=== PATIENT | female | born 1965 | race Caucasian/White ===

== ENCOUNTER 2018-08-06 01:01 | Observation (INO) ==
[2018-08-06] MEDS ORDERED: Naloxone 0.4 MG/ML INJ IVP PRN ×2 (03:05→10:28)
[2018-08-06] MEDS ORDERED: Ondansetron 4 MG/2 ML VIAL IVP PRN ×2 (03:05→10:28)
[2018-08-06] MEDS ORDERED: OXYCODONE Oral CONC 10 MG/0.5 ML ORAL.SYG SL PRN ×3 (03:05→10:28)
[2018-08-06] MEDS ORDERED: Ketorolac 30 MG/ML VIAL IVP PRN (03:05)
[2018-08-06] MEDS ORDERED: 0.9 % Sodium Chloride 1,000 ML IVC SCH ×2 (03:15→09:55)
[2018-08-06 03:38] LABS: Bilirubin,Urine Negative (Negative); Blood,Urine Large (Negative); Clarity,Urine Turbid (Clear); Glucose,Urine (UA) Normal (Normal); Ketones,Urine 40 mg/dL (Negative); Leukocyte Esterase,Urine Moderate (Negative); Nitrite,Urine Positive (Negative); PH,Urine 5.5 pH Units (5.0-8.0); Protein,Urine 30 mg/dL (Neg-Trace); Urobilinogen,Urine Normal (Normal)
[2018-08-06 03:40] LABS: Hyaline Casts,Urine None Seen per lpf (None-Few); RBC,Urine TNTC per hpf (0-3); Squamous Epithelial Cell,Urine Many per lpf (None-Few); WBC,Urine 50-100 per hpf (0-3)
--- NOTE | 2018-08-06 03:41 | Internal Med History&Physical ---
<Dev Melgar T - Last Filed: 08/06/18 04:04> Date of Encounter: 08/06/18 Time of Encounter: 03:39 Internal Medicine - H&P: HPI Chief complaint: Nephrolitiasis Admitted From: Emergency Dept History of present illness: Ms. Antony is a 53 year old female admitted for b/l nephrolitiasis, b/l hydronephrosis, and 3mm calculus in left distal ureter seen on abdominal CT. Patien thas history of HTN, hyperlipidemia, DM, and recurrent nephrolithiasis. She starting having R flank tenderness, left inguinal tenderness, N/V, chills, blood in urine, and feeling febrile two days ago. Tenderness rated 7/10, nonradiating, constant, exacerbated by movement. Patient tried ASA which did not alleviate pain. She presented to [facility] ED last night (08/05) where urinalysis showed possible UTI (positive nitrites) and blood. CT abdomen/plevis showed b/l hydronephrosis, b/l nonobstructing renal calculi, and 3mm calculus in left distal ureter. Urology at [facility] was consulted and they agreed to see her tomorrow for possible stone removal. Past Med Surg Social Fam HX - Past Medical History Medical history: hyperlipidemia, hypertension, kidney stones Psychiatric history: anxiety - Past Surgical History Surgical History: - Social History Smoking Status: Never smoker Smokeless Tobacco Status: No Alcohol use: none Drug use: none - Family History Mother Living Status: Still Living Hx Family Cardiac Disorders: No Hx Family Respiratory Disorders: No Hx Family Cancer: No Hx Family GI Disorders: No Hx Family Genitourinary Disorders: No Hx Family Endocrine Disorder: No Hx Family Musculoskeletal Disorders: No Hx Family Neuromuscular Disorders: No Hx Family Neurologic Disorders: No Hx Family HEENT Disorders: No Hx Family Autoimmune Disorders: No Hx Family Reproductive Disorders: No Hx Family Psychosocial Disorders: No Hx Family Medical Disorders: No Father Living Status: Still Living Hx Family Cardiac Disorders: No Hx Family Respiratory Disorders: No Hx Family Cancer: No Hx Family GI Disorders: No Hx Family Genitourinary Disorders: No Hx Family Endocrine Disorder: No Hx Family Musculoskeletal Disorders: No Hx Family Neuromuscular Disorders: No Hx Family Neurologic Disorders: No Hx Family HEENT Disorders: No Hx Family Autoimmune Disorders: No Hx Family Reproductive Disorders: No Hx Family Psychosocial Disorders: No Hx Family Medical Disorders: No Internal Medicine - H&P: Meds Allergy/AdvReac Type Severity Reaction Status Date / Time No Known Allergies Allergy Verified 08/06/18 03:35 All Systems PM: A 10-system review of systems was performed and is negative for pertinent findings except as documented above in the HPI. - Constitutional Constitutional: chills, fatigue, fever(s), weakness - Cardiovascular Cardiovascular ROS IM: no chest pain, no palpitations - Respiratory Respiratory: no cough, no dyspnea - Gastrointestinal Gastrointestinal: no abdominal pain, no change in bowel habits - Genitourinary Genitourinary: dysuria, flank pain, urinary frequency - Musculoskeletal Musculoskeletal ROS IM: back pain - Constitutional Vitals: Temp Pulse Resp BP Pulse Ox 98.2 F 115 16 94/57 95 08/06/18 03:22 08/06/18 03:22 08/06/18 03:22 08/06/18 03:22 08/06/18 03:22 General appearance: Present: A&O X 3, severe distress, answers questions appropriately Exam: . - Head Head exam: Present: atraumatic, normocephalic - Eye Eye exam: Present: EOMI. Absent: conjuntiva pink - Neck Neck exam general surgery: Present: supple, trachea midline - Respiratory Respiratory exam: Present: CTAB. Absent: rales, respiratory distress, rhonchi, wheezes - Cardiovascular Cardiovascular exam: Present: +S1, +S2, tachycardia - GI/Abdominal GI/Abdominal exam: Present: soft, tenderness (LLQ tenderness to palpation) - Extremities Exam Extremities exam: Present: normal inspection. Absent: cyanotic, mottling - Back Exam Back exam: Present: CVA tenderness (R) - Neurological Exam Neurological exam: Present: oriented X3, no focal deficits - Psychiatric Psychiatric exam: Present: anxious - Skin Skin exam: Present: dry, intact, warm - Assessment and plan (1) Bilateral nephrolithiasis Current Visit: Yes Status: Acute Assessment and plan: Urology has been consulted and plan to remove stone tomorrow. - Will plan to give patient one dose of tamsulosin 0.4mg - IVF ordered - Pain meds - toradol, oxycodone - Continue monitoring patient clinically with CBC and CMP (2) Sepsis Current Visit: Yes Status: Acute Assessment and plan: Patient is tachycardic with BP of 120 and with WBC of 11.89 with UTI seen by urinalysis. She meets 1/4 SIRS criteria. Antibiotics given at [facility]. - Repeating CMP and BMP at [facility]. - Blood cultures x2 ordered - Urinalysis ordered + Urine culture ordered Qualifiers: Sepsis type: sepsis due to unspecified organism Qualified Code(s): A41.9 - Sepsis, unspecified organism (3) DVT prophylaxis Current Visit: Yes Status: Acute Assessment and plan: heparin 5000U SQ Q8HR - Time Spent With Patient Total time spent is greater than 50% in coordination of care (as documented) at patient's floor/unit and/or counseling patient: <Felicitas Ballard A - Last Filed: 08/06/18 07:27> Date of Encounter: 08/06/18 Internal Medicine - H&P: HPI History of present illness: Ms. Antony is a 53 year old female All Systems PM: A 10-system review of systems was performed and is negative for pertinent findings except as documented above in the HPI. - Constitutional Vitals: Temp Pulse Resp BP Pulse Ox 98.2 F 115 16 94/57 95 08/06/18 03:22 08/06/18 03:22 08/06/18 03:22 08/06/18 03:22 08/06/18 03:22 Internal Med - H&P Results - Labs CBC & Chem 7: 08/06/18 03:38 08/06/18 03:38 Labs: Short CBC 08/06/18 Range/Units 03:38 WBC 14.1 H (4.3-11.1) K/mcL Hgb 9.3 L (11.5-15.4) g/dL Hct 29.1 L (35.3-44.9) % Plt Count 262 (140-400) K/mcL Neutrophils # 13.8 H (1.6-8.9) K/mcL BMP 08/06/18 03:38 Sodium 139 Potassium 3.4 L Chloride 109 H Carbon Dioxide 17 L BUN 11 Creatinine 0.99 Glucose 124 H Calcium 8.4 L Liver Function 08/06/18 Range/Units 03:38 Total Bilirubin 0.5 (0.3-1.0) mg/dL AST 19 (13-39) Units/L ALT 11 (7-52) Units/L Alkaline Phosphatase 77 (34-104) Units/L Albumin 3.5 (3.5-5.7) g/dL Urine 08/06/18 Range/Units 03:23 Urine Color Dark Yellow (Yellow) Urine Clarity Turbid A (Clear) Urine pH 5.5 (5.0-8.0) pH Units Ur Specific [place] 1.010 (1.010-1.025) Urine Protein 30 H (Neg-Trace) mg/dL Urine Glucose (UA) Normal (Normal) mg/dL - Assessment and plan (1) Sepsis Current Visit: Yes Status: Acute Qualifiers: Sepsis type: sepsis due to unspecified organism Qualified Code(s): A41.9 - Sepsis, unspecified organism (2) Bilateral nephrolithiasis Current Visit: Yes Status: Acute (3) DVT prophylaxis Current Visit: Yes Status: Acute - Time Spent With Patient Total time spent is greater than 50% in coordination of care (as documented) at patient's floor/unit and/or counseling patient: - Attending Attestation I performed a history and physical examination of the patient and discussed her management with the resident. I reviewed the resident's note and agree with the documented findings and plan of care. Patient was additionally noted to have anemia though is currently asymptomatic. We will monitor for now.
[2018-08-06 03:42] LABS: Color,Urine Dark Yellow (Yellow)
[2018-08-06 04:00] LABS: Basophils % 0.1 %; Hematocrit 29.1 % (35.3-44.9); Hemoglobin 9.3 g/dL (11.5-15.4); Immature Granulocytes % 0.4 % (0-4); Lymphocytes # 0.2 K/mcL (0.6-4.6); Lymphocytes % 1.4 %; Mean Corpuscular Hemoglobin 27.3 pg (28.0-33.3); Mean Corpuscular Volume 85.3 fL (83.0-100.0); Mean Platelet Volume 10.5 fL (9.4-12.4); Monocytes % 0.3 %; Neutrophils # 13.8 K/mcL (1.6-8.9); Platelet Count 262 K/mcL (140-400); Red Blood Count 3.41 M/mcL (3.82-4.97); Red Cell Distribution Width 16.1 % (11.5-14.5); Segmented Neutrophils % 97.8 %
[2018-08-06 04:03] LABS: Bacteria,Urine Moderate per hpf (None-Few)
[2018-08-06 04:07] LABS: INR 1.1; Prothrombin Time 12.5 Seconds (9.4-12.1)
[2018-08-06 04:20] LABS: Alanine Aminotransferase 11 Units/L (7-52); Albumin 3.5 g/dL (3.5-5.7); Albumin/Globulin Ratio 1.3 (1.1-2.2); Alkaline Phosphatase 77 Units/L (34-104); Aspartate Amino Transferase 19 Units/L (13-39); BUN/Creatinine Ratio 11 (6-26); Bilirubin,Total 0.5 mg/dL (0.3-1.0); Blood Urea Nitrogen 11 mg/dL (6-20); Calcium 8.4 mg/dL (8.6-10.3); Carbon Dioxide 17 mEq/L (23-29); Globulin 2.8 g/dL (2.4-3.5); Glucose 124 mg/dL (70-105); Total Protein 6.3 g/dL (6.4-8.9); eGFR For Non-African Americans 59 (> 60)
[2018-08-06 04:25] LABS: Chloride 109 mEq/L (98-107); Osmolality,Calculated 289 (280-300); Potassium 3.4 mEq/L (3.5-5.1); Sodium 139 mEq/L (136-145)
[2018-08-06] MEDS ORDERED: cefTRIAXone 1,000 MG in Water for inj. (sterile) 20 ML 10 ML IVPB SCH (05:00)
[2018-08-06] MEDS ORDERED: *HR* Heparin 5,000 UNIT/ML VIAL SQ SCH (06:00)
[2018-08-06] MEDS ORDERED: Ondansetron 4 MG/2 ML VIAL ONE (07:13)
[2018-08-06] MEDS ORDERED: Dexamethasone 4 MG/ML VIAL ONE (07:13)
[2018-08-06] MEDS ORDERED: *HR* FentaNYL (PF) 100 MCG/2 ML VIAL ONE (07:13)
[2018-08-06] MEDS ORDERED: *HR* Propofol 200 MG/20 ML VIAL IVP ONE (07:13)
[2018-08-06] MEDS ORDERED: Lidocaine -MPF 4% 5 ML AMPUL ONE (07:13)
[2018-08-06] MEDS ORDERED: Lidocaine -MPF 2% 2 ML VIAL ONE ×2 (07:13)
[2018-08-06] MEDS ORDERED: *HR* PHENYLEPHRINE 1,000 MCG/10 ML SYRINGE IVP ONE (07:13)
[2018-08-06] MEDS ORDERED: *HR* Succinylcholine 200 MG/10 ML VIAL IVP ONE (07:13)
[2018-08-06] MEDS ORDERED: *HR* Midazolam HCl 2 MG/2 ML VIAL ONE (07:14)
--- NOTE | 2018-08-06 07:16 | Urology - Consult Note ---
Date of Encounter: 08/06/18 Time of Encounter: 07:14 - Assessment and Plan (1) Left ureteral stone Current Visit: Yes Status: Acute Assessment and plan: We will plan on taking the patient to the operative room today for cystoscopy and left ureteral stent placement. While patient does have some mild right- sided hydronephrosis no ureteral dilation or ureteral stone noted. (2) UTI (urinary tract infection) Current Visit: Yes Status: Acute Assessment and plan: Continue broad-spectrum antibiotics. Patient will need 10 days of antibiotics. Qualifiers: Urinary tract infection type: acute cystitis Hematuria presence: without hematuria Qualified Code(s): N30.00 - Acute cystitis without hematuria (3) Anemia Current Visit: Yes Status: Acute Assessment and plan: Unsure of etiology at this time. Patient will need workup with primary care provider. Qualifiers: Anemia type: unspecified type Qualified Code(s): D64.9 - Anemia, unspecified Urology CN:HPI Consult date: 08/06/18 Reason for consult Urology: Hydronephrosis Requesting physician: Felicitas Ballard History of present illness: Kya is a 53-year-old female with history of recent trip to outside hospital secondary to severe left lower quadrant abdominal pain. Patient was found to have a distal 3 mm stone. Patient with nitrite positive urinalysis. Patient was subjective fevers at home. Patient with positive nausea without vomiting at this time. Patient is of a significant past medical history for kidney stones but has not had any surgical intervention for these. Past Med Surg Social Fam HX - Past Medical History Medical history: hyperlipidemia, hypertension, kidney stones Psychiatric history: anxiety - Past Surgical History Surgical History: - Social History Smoking Status: Never smoker Smokeless Tobacco Status: No Alcohol use: none Drug use: none - Family History Mother Living Status: Still Living Hx Family Cardiac Disorders: No Hx Family Respiratory Disorders: No Hx Family Cancer: No Hx Family GI Disorders: No Hx Family Genitourinary Disorders: No Hx Family Endocrine Disorder: No Hx Family Musculoskeletal Disorders: No Hx Family Neuromuscular Disorders: No Hx Family Neurologic Disorders: No Hx Family HEENT Disorders: No Hx Family Autoimmune Disorders: No Hx Family Reproductive Disorders: No Hx Family Psychosocial Disorders: No Hx Family Medical Disorders: No Father Living Status: Still Living Hx Family Cardiac Disorders: No Hx Family Respiratory Disorders: No Hx Family Cancer: No Hx Family GI Disorders: No Hx Family Genitourinary Disorders: No Hx Family Endocrine Disorder: No Hx Family Musculoskeletal Disorders: No Hx Family Neuromuscular Disorders: No Hx Family Neurologic Disorders: No Hx Family HEENT Disorders: No Hx Family Autoimmune Disorders: No Hx Family Reproductive Disorders: No Hx Family Psychosocial Disorders: No Hx Family Medical Disorders: No Medications and Allergies Allergy/AdvReac Type Severity Reaction Status Date / Time No Known Allergies Allergy Verified 08/06/18 03:35 Review of Systems - Constitutional fever(s), no chills - EENT Nose, mouth and throat: no dizziness - Cardiovascular no chest pain - Respiratory no cough - Gastrointestinal nausea, no abdominal pain, no vomiting Exam Initial Vital Signs Temp Pulse Resp BP Pulse Ox 98.2 F 115 16 94/57 95 08/06/18 03:22 08/06/18 03:22 08/06/18 03:22 08/06/18 03:22 08/06/18 03:22 General/Neuological: alert and oriented x 3 Eyes: normal pupils, non-icteric Neck: no lymphadenopathy noted, supple to touch Cardiovascular: RRR, no murmurs Respiratory: normal respiratory effort, clear bilaterally ABD: soft, nontender, no masses palpated, good bowel sounds Back: no pain on percussion bilaterally Skin: no rashes noted Musculoskeletal: normal gait, FROMx4 Urology Results - Labs 08/06/18 03:38 08/06/18 03:38 Abnormal lab results WBC 14.1 K/mcL (4.3-11.1) H 08/06/18 03:38 RBC 3.41 M/mcL (3.82-4.97) L 08/06/18 03:38 Hgb 9.3 g/dL (11.5-15.4) L 08/06/18 03:38 Hct 29.1 % (35.3-44.9) L 08/06/18 03:38 MCH 27.3 pg (28.0-33.3) L 08/06/18 03:38 RDW 16.1 % (11.5-14.5) H 08/06/18 03:38 Neutrophils # 13.8 K/mcL (1.6-8.9) H 08/06/18 03:38 Lymphocytes # 0.2 K/mcL (0.6-4.6) L 08/06/18 03:38 PT 12.5 Seconds (9.4-12.1) H 08/06/18 03:38 Potassium 3.4 mEq/L (3.5-5.1) L 08/06/18 03:38 Chloride 109 mEq/L (98-107) H 08/06/18 03:38 Carbon Dioxide 17 mEq/L (23-29) L 08/06/18 03:38 Est GFR (Non-Af Amer) 59 (> 60) L 08/06/18 03:38 Glucose 124 mg/dL (70-105) H 08/06/18 03:38 Calcium 8.4 mg/dL (8.6-10.3) L 08/06/18 03:38 Serum Total Protein 6.3 g/dL (6.4-8.9) L 08/06/18 03:38 Urine Clarity Turbid (Clear) A 08/06/18 03:23 Urine Protein 30 mg/dL (Neg-Trace) H 08/06/18 03:23 Urine Ketones 40 mg/dL (Negative) H 08/06/18 03:23 Urine Blood Large (Negative) H 08/06/18 03:23 Urine Nitrite Positive (Negative) A 08/06/18 03:23 Ur Leukocyte Esterase Moderate (Negative) H 08/06/18 03:23 Urine Microscopic RBC TNTC per hpf (0-3) H 08/06/18 03:23 Urine Microscopic WBC 50-100 per hpf (0-3) H 08/06/18 03:23 Ur Squamous Epith Cells Many per lpf (None-Few) H 08/06/18 03:23 Urine Bacteria Moderate per hpf (None-Few) H 08/06/18 03:23 Diabetes panel 08/06/18 Range/Units 03:38 Sodium 139 (136-145) mEq/L Potassium 3.4 L (3.5-5.1) mEq/L Chloride 109 H (98-107) mEq/L Carbon Dioxide 17 L (23-29) mEq/L BUN 11 (6-20) mg/dL Creatinine 0.99 (0.60-1.20) mg/dL Glucose 124 H (70-105) mg/dL Calcium 8.4 L (8.6-10.3) mg/dL AST 19 (13-39) Units/L ALT 11 (7-52) Units/L Alkaline Phosphatase 77 (34-104) Units/L Albumin 3.5 (3.5-5.7) g/dL Calcium panel 08/06/18 Range/Units 03:38 Calcium 8.4 L (8.6-10.3) mg/dL Albumin 3.5 (3.5-5.7) g/dL Pituitary panel 08/06/18 Range/Units 03:38 Sodium 139 (136-145) mEq/L Potassium 3.4 L (3.5-5.1) mEq/L Chloride 109 H (98-107) mEq/L Carbon Dioxide 17 L (23-29) mEq/L BUN 11 (6-20) mg/dL Creatinine 0.99 (0.60-1.20) mg/dL Glucose 124 H (70-105) mg/dL Calcium 8.4 L (8.6-10.3) mg/dL Adrenal panel 08/06/18 Range/Units 03:38 Sodium 139 (136-145) mEq/L Potassium 3.4 L (3.5-5.1) mEq/L Chloride 109 H (98-107) mEq/L Carbon Dioxide 17 L (23-29) mEq/L BUN 11 (6-20) mg/dL Creatinine 0.99 (0.60-1.20) mg/dL Glucose 124 H (70-105) mg/dL Calcium 8.4 L (8.6-10.3) mg/dL Total Bilirubin 0.5 (0.3-1.0) mg/dL AST 19 (13-39) Units/L ALT 11 (7-52) Units/L Alkaline Phosphatase 77 (34-104) Units/L Albumin 3.5 (3.5-5.7) g/dL All other labs normal. - Imaging CT scan - abdomen: image reviewed CT scan - pelvis: image reviewed Consult Discharge Plan - Plan Referrals: Marcelle Hyman MD [Partnered Physician] - NONE,PCP [Primary Care Provider] -
[2018-08-06] MEDS ORDERED: *HR* Labetalol 20 MG/4 ML SYRINGE IVP PRN (07:17)
[2018-08-06] MEDS ORDERED: *HR* Morphine 2 MG/ML SYRINGE IVP PRN (07:17)
[2018-08-06] MEDS ORDERED: *HR* OxyCODONE Immed Rel 5 MG TABLET PO PRN (07:17)
[2018-08-06] MEDS ORDERED: Dexamethasone 4 MG/ML VIAL IVP ONE (07:17)
[2018-08-06] MEDS ORDERED: Ondansetron 4 MG/2 ML VIAL IVP ONE (07:17)
[2018-08-06] MEDS ORDERED: *HR* Promethazine 25 MG/ML VIAL IVP PRN (07:17)
--- NOTE | 2018-08-06 07:32 | Anesthesia Evaluation PreOp ---
Date of Encounter: 08/06/18 Time of Encounter: 07:40 - Past History Planned Operation: Cysto Left Stent Ureteral Cardiac History: HTN, Hyperlipidemia, Other (Anemia) Pulmonary History: Denies Any Significant HX [employer] History: Denies Any Significant HX Other Medical History: Other ([place]) Anesthesia History: No Prior Anesthetic Complications : No Alcohol Use: none Drug use: none Medications and Allergies Allergy/AdvReac Type Severity Reaction Status Date / Time No Known Allergies Allergy Verified 08/06/18 03:35 - Meds/Allergy Pre-op Review Medications Reviewed: Yes Allergies Reviewed: Yes Beta Blockers on Current Med List: Yes (On Labetalol prn) Anesthesia Results - Labs 08/06/18 03:38 08/06/18 03:38 Anesthesia Exam O2 Sat Height 1.65 m Weight 115.3 kg O2 Sat by Pulse Oximetry 97 O2 Sat by Pulse Oximetry 95 Vital Signs Temp Pulse Resp BP Pulse Ox 98.2 F 115 16 94/57 95 08/06/18 03:22 08/06/18 03:22 08/06/18 03:22 08/06/18 03:22 08/06/18 03:22 Height: 5'5 Weight: 254 lbs NPO (# of Hours): MN Pain Scale: 0 - HEENT Pupil (Motor): Pupils equal, EOMI Mallampati: II Teeth: Normal Oral Opening: Greater than 3 - GL[employer]ING [employer] LOC: Oriented [employer]ER Motor: Normal RUE, Normal LUE, Normal RLE, Normal LLE, Normal Face [employer] Sensory: Normal: RUE, LUE, RLE, LLE, Face - Cardiac Rhythm: Regular Murmur: None JVD: No Carotid Bruit: No - Pulmonary Breath Sounds: bilateral Clear Respiratory Effort: Symmetrical Anesthesia Assess/Plan ASA Score: 3 (HTN [place] Anemia) Level of consciousness: Cooperative Anesthetic Plan: General Autologous Blood: No Monitoring Plan: Standard Monitors Recovery Plan: PACU (Discussed GA, agrees to proceed)
[2018-08-06] MEDS ORDERED: Isovue-300 50 ML VIAL IVP ONE (07:36)
[2018-08-06] MEDS ORDERED: Famotidine 20 MG/2 ML VIAL ONE (07:46)
--- NOTE | 2018-08-06 08:42 | Operative Note ---
Date of procedure: 08/06/18 Pre-op diagnosis: left distal ureteral stone with fever Post-op diagnosis: same Procedure: Cystoscopy and left 6 x 24 cm ureteral stent placement Anesthesia: LISA Surgeon: Gallito Cannon Was there an pet care assistant present: No Estimated blood loss (cc): 0 Specimen: None Condition: stable Disposition: PACU Procedure in Detail: Patient was prepped and draped in normal sterile fashion. Timeout procedure performed. Then inserted the cystoscope in the patient's bladder. She had a significant amount of blood in the bladder. This was drained. I was then able to visualize the left ureteral orifice was was quite edematous. I then cannulated this using a Glidewire. I could feel the stone but was able to negotiate the wire past the stone. Significant amount of blood was seen coming from the left ureteral orifice after this was completed. I then fed a 6 x 24 cm stent with good curl seen in the left kidney and in the bladder using fluoroscopy. Bladder was drained and procedure was ended. Patient can expect some significant blood in her urine for the next day or so. We will continue to follow along closely.
--- NOTE | 2018-08-06 09:00 | Anesthesia Evaluation Post Op ---
Date of Encounter: 08/06/18 Time of Encounter: 08:59 - Vital Signs Vital Signs: Last Vital Signs Temp 100 F H 08/06/18 08:35 Pulse 102 08/06/18 08:55 Resp 18 08/06/18 08:55 BP 100/64 08/06/18 08:55 Pulse Ox 94 08/06/18 08:55 - Lungs Lungs: Clear Ascult./Percussion - Airway Airway: Non-obstructed - Cardiovascular Regular Rate - Mental Status Mental Status: Alert & Oriented, Answers Appropriately - Pain Pain Scale: 2 - Nausea Vomiting Nausea Vomiting: Not Present - Hydration Hydration: NPO - Discharge PostOp Status: Transfer Patient to floor
--- NOTE | 2018-08-06 09:51 | Internal Med Progress Note ---
Hospitalist Progress Note - Encounter Date of Encounter: 08/06/18 Time of Encounter: 09:47 - Subjective Interval History: Patient was seen and examined at bedside. She just came back from cystoscopy with stent placement. Patient stated her abdominal pain, left flank pain is tolerable with current pain medication. Denied any nausea vomiting - Exam Vitals: Temp Pulse Resp BP Pulse Ox 98.0 F 96 19 108/71 98 08/06/18 09:33 08/06/18 09:33 08/06/18 09:33 08/06/18 09:33 08/06/18 09:33 Exam: Gen: Alert, awake, Oriented to time,place and person Chest: Diminished breath sounds B/L, No wheezing, No crackles, No rales Heart: S1S2+ RRR No murmurs Abd: Soft, NT, BS +, No organomegaly Jamie: No CVA tenderness Ext: No edema, pulses are palpable, No calf tenderness Neuro : Benign findings Skin: No rash. - Assessment and Plan (1) Sepsis Current Visit: Yes Status: Acute Assessment and Plan: Due to UTI improving T max 100.0 continue empirical antibiotic Rocephin continue IV hydration (2) UTI (urinary tract infection) Current Visit: Yes Status: Acute Assessment and Plan: on Rocephin will f/u on Urine cx (3) Left ureteral stone Current Visit: Yes Status: Acute Assessment and Plan: s/p Left Ureter stent POD # 0 cont empirical abx Rocephin appreciate urology recommendations IV hydration (4) Bilateral nephrolithiasis Current Visit: Yes Status: Acute Assessment and Plan: IVF Analgesics as needed continue symptomatic and supportive care (5) DVT prophylaxis Current Visit: Yes Status: Acute Assessment and Plan: heparin 5000U SQ Q8HR - Time Spent with Patient Total time spent is greater than 50% in coordination of care (as documented) at patient's floor/unit and/or counseling patient: Internal Medicine: Result - Labs CBC & Chem 7: 08/06/18 03:38 08/06/18 03:38 Labs: Short CBC 08/06/18 Range/Units 03:38 WBC 14.1 H (4.3-11.1) K/mcL Hgb 9.3 L (11.5-15.4) g/dL Hct 29.1 L (35.3-44.9) % Plt Count 262 (140-400) K/mcL Neutrophils # 13.8 H (1.6-8.9) K/mcL BMP 08/06/18 03:38 Sodium 139 Potassium 3.4 L Chloride 109 H Carbon Dioxide 17 L BUN 11 Creatinine 0.99 Glucose 124 H Calcium 8.4 L Liver Function 08/06/18 Range/Units 03:38 Total Bilirubin 0.5 (0.3-1.0) mg/dL AST 19 (13-39) Units/L ALT 11 (7-52) Units/L Alkaline Phosphatase 77 (34-104) Units/L Albumin 3.5 (3.5-5.7) g/dL Urine 08/06/18 Range/Units 03:23 Urine Color Dark Yellow (Yellow) Urine Clarity Turbid A (Clear) Urine pH 5.5 (5.0-8.0) pH Units Ur Specific [place] 1.010 (1.010-1.025) Urine Protein 30 H (Neg-Trace) mg/dL Urine Glucose (UA) Normal (Normal) mg/dL - ABG Interpretation ABG results: PT/INR, D-dimer PT 12.5 Seconds (9.4-12.1) H 08/06/18 03:38 - Impressions Impressions Fluoroscopy 08/06/18 00:00 IMPRESSION: Intraprocedural fluoroscopic spot images as above. See separate procedure report for more information. D/ / Luis Alfredo Hutchinson MD / Luis Alfredo Hutchinson MD Interpreting Provider: Luis Alfredo Hutchinson MD X-Ray 08/06/18 00:00 IMPRESSION: Intraprocedural fluoroscopic spot images as above. See separate procedure report for more information. D/ / Luis Alfredo Hutchinson MD / Luis Alfredo Hutchinson MD Interpreting Provider: Luis Alfredo Hutchinson MD Consult Discharge Plan - Plan Referrals: Marcelle Hyman MD [Partnered Physician] - NONE,PCP [Primary Care Provider] - (1) Sepsis Qualifiers: Sepsis type: sepsis due to unspecified organism Qualified Code(s): A41.9 - Sepsis, unspecified organism (2) UTI (urinary tract infection) Qualifiers: Urinary tract infection type: acute cystitis Hematuria presence: without hematuria Qualified Code(s): N30.00 - Acute cystitis without hematuria
[2018-08-06] MEDS: 0.9 % Sodium Chloride 1,000 ML IVC SCH ×2 (11:00→15:35)
[2018-08-06] MEDS: *HR* Heparin 5,000 UNIT/ML VIAL SQ SCH ×2 (15:36→22:33)
[2018-08-06] MEDS ORDERED: Acetaminophen 325 MG TABLET PO PRN (15:53)
[2018-08-06] MEDS: Ketorolac 30 MG/ML VIAL IVP PRN (22:32)
[2018-08-07] MEDS: 0.9 % Sodium Chloride 1,000 ML IVC SCH (01:38)
[2018-08-07 04:37] LABS: Basophils % 0.1 %; Mean Platelet Volume 11.3 fL (9.4-12.4); Red Cell Distribution Width 16.6 % (11.5-14.5)
[2018-08-07 04:39] LABS: Hematocrit 25.5 % (35.3-44.9); Hemoglobin 8.1 g/dL (11.5-15.4); Immature Granulocytes % 2.1 % (0-4); Lymphocytes % 2.7 %; Mean Corpuscular HGB Conc 31.8 g/dL (31.6-35.5); Mean Corpuscular Hemoglobin 27.6 pg (28.0-33.3); Monocytes # 1.6 K/mcL (0.0-1.3); Monocytes % 4.4 %; Platelet Count 251 K/mcL (140-400); Red Blood Count 2.93 M/mcL (3.82-4.97); Segmented Neutrophils % 90.7 %
[2018-08-07 04:49] LABS: Neutrophils # 32.5 K/mcL (1.6-8.9)
[2018-08-07 04:54] LABS: BUN/Creatinine Ratio 15 (6-26); Blood Urea Nitrogen 15 mg/dL (6-20); Carbon Dioxide 20 mEq/L (23-29); Chloride 110 mEq/L (98-107); Glucose 145 mg/dL (70-105); Osmolality,Calculated 287 (280-300); Potassium 3.7 mEq/L (3.5-5.1); Sodium 137 mEq/L (136-145); eGFR For Non-African Americans 58 (> 60)
[2018-08-07] MEDS ORDERED: cefTRIAXone 1,000 MG in Water for inj. (sterile) 20 ML 10 ML IVPB SCH (05:00)
[2018-08-07 05:41] LABS: Platelet Estimate Normal (Normal)
[2018-08-07] MEDS: Ketorolac 30 MG/ML VIAL IVP PRN (06:24)
[2018-08-07] MEDS: *HR* Heparin 5,000 UNIT/ML VIAL SQ SCH (06:24)
[2018-08-07 07:05] VITALS: BP 90/56
[2018-08-07] MEDS ORDERED: 0.9 % Sodium Chloride 500 ML IVC ONE (08:39)
[2018-08-07 09:08] LABS: Basophils % 0.1 %; Lymphocytes % 3.2 %
[2018-08-07 09:09] LABS: Hematocrit 24.6 % (35.3-44.9); Immature Granulocytes % 2.4 % (0-4); Lymphocytes # 1.1 K/mcL (0.6-4.6); Mean Corpuscular HGB Conc 32.5 g/dL (31.6-35.5); Mean Corpuscular Hemoglobin 27.7 pg (28.0-33.3); Mean Corpuscular Volume 85.1 fL (83.0-100.0); Monocytes # 1.6 K/mcL (0.0-1.3); Monocytes % 4.8 %; Platelet Count 258 K/mcL (140-400); Red Blood Count 2.89 M/mcL (3.82-4.97); Red Cell Distribution Width 16.9 % (11.5-14.5); Segmented Neutrophils % 89.5 %
[2018-08-07 09:16] LABS: Neutrophils # 30.3 K/mcL (1.6-8.9)
--- NOTE | 2018-08-07 09:41 | Urology Progress Note ---
<Lily Guan N - Last Filed: 08/07/18 09:38> Date of Encounter: 08/07/18 Time of Encounter: 09:00 - Assessment and Plan (1) Left ureteral stone Current Visit: Yes Status: Acute Assessment and plan: Patient is a 53 year old female who is one day status post cystoscopy and left ureteral stent placement. Patient is aware she will undergo at least one more procedure for definitive stone extraction. Discussed ureteral stent expectations, and patient is tolerating stent well. (2) UTI (urinary tract infection) Current Visit: Yes Status: Acute Assessment and plan: Patient is a 53 year old female who presents with distal 3mm left ureteral stone and UTI. Patient has been placed on IV Rocephin. WBC 35 to 33 this am. Patient's vital signs are stable and afebrile. Recommend additional 7-10 days oral antibiotics after discharge. Preliminary blood cultures are negative; final cultures pending. Qualifiers: Urinary tract infection type: acute cystitis Hematuria presence: without hematuria Qualified Code(s): N30.00 - Acute cystitis without hematuria (3) Bilateral nephrolithiasis Current Visit: Yes Status: Acute Progress Note Subjective: no new complaints, feels better Narrative: POD #1. Patient seen and examined ambulating in room without assistance. Tolerating normal diet without nausea or vomiting. Patient is voiding without difficulty. Pain is well controlled. Patient denies fever, chills, chest pain, dyspnea, calf pain. Objective Initial Vital Signs Temp Pulse Resp BP Pulse Ox 98.2 F 115 16 94/57 95 08/06/18 03:22 08/06/18 03:22 08/06/18 03:22 08/06/18 03:22 08/06/18 03:22 - General physical appearance Present: well developed, no distress, no pain - Respiratory Present: normal expansion, normal respiratory effort - Abdomen Present: soft, non tender - Genitourinary Urine Appearance: Present: Clear - Integumentary Present: no rash, no abnormal pigmentation - Musculoskeletal Present: normal gait, normal posture - Psychiatric Present: oriented to time, oriented to person, oriented to place, speech is normal, memory intact - Labs 08/07/18 08:44 08/07/18 03:02 Diabetes panel 08/07/18 Range/Units 03:02 Sodium 137 (136-145) mEq/L Potassium 3.7 (3.5-5.1) mEq/L Chloride 110 H (98-107) mEq/L Carbon Dioxide 20 L (23-29) mEq/L BUN 15 (6-20) mg/dL Creatinine 1.01 (0.60-1.20) mg/dL Glucose 145 H (70-105) mg/dL Calcium 8.0 L (8.6-10.3) mg/dL Calcium panel 08/07/18 Range/Units 03:02 Calcium 8.0 L (8.6-10.3) mg/dL Pituitary panel 08/07/18 Range/Units 03:02 Sodium 137 (136-145) mEq/L Potassium 3.7 (3.5-5.1) mEq/L Chloride 110 H (98-107) mEq/L Carbon Dioxide 20 L (23-29) mEq/L BUN 15 (6-20) mg/dL Creatinine 1.01 (0.60-1.20) mg/dL Glucose 145 H (70-105) mg/dL Calcium 8.0 L (8.6-10.3) mg/dL Adrenal panel 08/07/18 Range/Units 03:02 Sodium 137 (136-145) mEq/L Potassium 3.7 (3.5-5.1) mEq/L Chloride 110 H (98-107) mEq/L Carbon Dioxide 20 L (23-29) mEq/L BUN 15 (6-20) mg/dL Creatinine 1.01 (0.60-1.20) mg/dL Glucose 145 H (70-105) mg/dL Calcium 8.0 L (8.6-10.3) mg/dL Consult Discharge Plan - Plan Instructions: Sepsis (DC) Referrals: Gallito Cannon MD [Partnered Physician] - Marcelle Hyman MD [Partnered Physician] - NONE,PCP [Primary Care Provider] - Shauna Fry CNP [Advanced Practice Nurse] - (pt states she will call pcp Shauna Fry for follow up) Prescriptions: OxyCODONE/APAP 5/325 [Percocet 5/325 MG] 1 each PO Q6HR PRN 3 Days #10 tablet PRN Reason: Pain RX: Ciprofloxacin [Cipro] 500 mg PO BID #16 tablet RX: Lactobacillus [Culturelle] 1 each PO BID #30 [email or web address] <Gallito Cannonter - Last Filed: 08/07/18 11:35> Date of Encounter: 08/07/18 - Assessment and Plan (1) Left ureteral stone Current Visit: Yes Status: Acute Assessment and plan: Patient was seen and examined independently. I agree with plan as written by Lily guan. Patient needs to continue with antibiotics. I will schedule patient for stone extraction next week. She will need to increase her fluids. I do have some concern regarding the patient's lower blood pressure as well as leukocytosis even know it is slowly improving. (2) UTI (urinary tract infection) Current Visit: Yes Status: Acute Qualifiers: Urinary tract infection type: acute cystitis Hematuria presence: without hematuria Qualified Code(s): N30.00 - Acute cystitis without hematuria (3) Anemia Current Visit: Yes Status: Acute Qualifiers: Anemia type: unspecified type Qualified Code(s): D64.9 - Anemia, unspecified Objective Initial Vital Signs Temp Pulse Resp BP Pulse Ox 98.2 F 115 16 94/57 95 08/06/18 03:22 08/06/18 03:22 08/06/18 03:22 08/06/18 03:22 08/06/18 03:22 - Labs 08/07/18 08:44 08/07/18 03:02 Diabetes panel 08/07/18 Range/Units 03:02 Sodium 137 (136-145) mEq/L Potassium 3.7 (3.5-5.1) mEq/L Chloride 110 H (98-107) mEq/L Carbon Dioxide 20 L (23-29) mEq/L BUN 15 (6-20) mg/dL Creatinine 1.01 (0.60-1.20) mg/dL Glucose 145 H (70-105) mg/dL Calcium 8.0 L (8.6-10.3) mg/dL Calcium panel 08/07/18 Range/Units 03:02 Calcium 8.0 L (8.6-10.3) mg/dL Pituitary panel 08/07/18 Range/Units 03:02 Sodium 137 (136-145) mEq/L Potassium 3.7 (3.5-5.1) mEq/L Chloride 110 H (98-107) mEq/L Carbon Dioxide 20 L (23-29) mEq/L BUN 15 (6-20) mg/dL Creatinine 1.01 (0.60-1.20) mg/dL Glucose 145 H (70-105) mg/dL Calcium 8.0 L (8.6-10.3) mg/dL Adrenal panel 08/07/18 Range/Units 03:02 Sodium 137 (136-145) mEq/L Potassium 3.7 (3.5-5.1) mEq/L Chloride 110 H (98-107) mEq/L Carbon Dioxide 20 L (23-29) mEq/L BUN 15 (6-20) mg/dL Creatinine 1.01 (0.60-1.20) mg/dL Glucose 145 H (70-105) mg/dL Calcium 8.0 L (8.6-10.3) mg/dL
--- NOTE | 2018-08-07 10:18 | Discharge Summary ---
- NOTES TO OUTPATIENT PROVIDER Notes to Outpatient Provider: Follow with PCP in 2-3 days. Follow up with Urology Dr. Cannon on 08/15/18. Please go for CBC in 2 days and f/u with PCP / Dr. Cannon office about test results Orders not resulted at time of discharge: Pending orders 08/06/18 03:36 Culture,Blood [BC] Stat 08/07/18 06:03 Culture,Blood [BC] Routine 08/07/18 06:14 Culture,Urine [RM] Routine 08/07/18 08:44 CBC [Complete Blood Count] [HEME] Stat Date of Encounter: 08/07/18 Time of Encounter: 10:10 - Discharge Diagnosis (1) Sepsis Priority: Primary Status: Acute Qualifiers: Sepsis type: sepsis due to unspecified organism Qualified Code(s): A41.9 - Sepsis, unspecified organism (2) Leukocytosis Priority: Secondary Status: Acute Qualifiers: Leukocytosis type: unspecified Qualified Code(s): D72.829 - Elevated white blood cell count, unspecified (3) UTI (urinary tract infection) Priority: Primary Status: Acute Qualifiers: Urinary tract infection type: acute cystitis Hematuria presence: without hematuria Qualified Code(s): N30.00 - Acute cystitis without hematuria (4) Left ureteral stone Priority: Primary Status: Acute (5) Bilateral nephrolithiasis Priority: Secondary Status: Acute (6) DVT prophylaxis Priority: Secondary Status: Acute Hospital course: Ms. Antony is a 53 year old female with a known past medical history of hypertension, hyperlipidemia and recurrent kidney stones patient presented to [facility] ED R flank tenderness, left inguinal tenderness, N/V, chills, blood in urine, and feeling febrile two days. Her urinalysis showed possible UTI (positive nitrites) and blood. CT abdomen/plevis showed b/l hydronephrosis, b/l non obstructing renal calculi, and 3mm calculus in left distal ureter. Pt was admitted in our hospital, started her on IV hydration and empirical abx Rocephin. She was evaluated by Urologist Dr. Cannon who did an Cystoscopy with Left ureter stent placement y/d. Today she is feeling lot better, denied any abdominal pain. Remained afebrile. Her blood and urine cx did not grow anything. However today her WBC jumped upto 35K which is most likely reactive. Since pt is doing better clinically, will d/c her home with f/u CBC in 2 days and PO Abx x total 10 days course. - Time Spent with Patient Total time spent providing and/or coordinating discharge services: - Discharge Medications Prescriptions: OxyCODONE/APAP 5/325 [Percocet 5/325 MG] 1 each PO Q6HR PRN 3 Days #10 tablet PRN Reason: Pain Ciprofloxacin [Cipro] 500 mg PO BID #16 tablet Lactobacillus [Culturelle] 1 each PO BID #30 [email or web address] Home Medications: Ciprofloxacin [Cipro] 500 mg PO BID #16 tablet 08/07/18 [Rx] Lactobacillus [Culturelle] 1 each PO BID #30 cap.[email or web address] 08/07/18 [Rx] OxyCODONE/APAP 5/325 [Percocet 5/325 MG] 1 each PO Q6HR PRN 3 Days #10 tablet 08/07/18 [Rx] Allergies/Adverse Reactions: Allergy/AdvReac Type Severity Reaction Status Date / Time No Known Allergies Allergy Verified 08/06/18 03:35 Date of admission: 08/06/18 02:51 Primary care physician: PCP NONE - Constitutional Vitals: Temp Pulse Resp BP Pulse Ox 98.3 F 74 17 90/56 97 08/07/18 07:04 08/07/18 07:04 08/07/18 07:04 08/07/18 07:04 08/07/18 07:52 General appearance: Present: A&O X 3, severe distress, answers questions appropriately Exam: Gen: Alert, awake, Oriented to time,place and person Chest: Diminished breath sounds B/L, No wheezing, No crackles, No rales Heart: S1S2+ RRR No murmurs Abd: Soft, NT, BS +, No organomegaly Ext: No edema, pulses are palpable, No calf tenderness Neuro : Benign findings Skin: No rash. - Patient Status Disposition: Home, Self-Care Condition: Good Overall status at discharge: patient is back to baseline - Ambulatory Orders Ambulatory Orders: Complete Blood Count [HEME] Time Frame: 2 Days, Facility: [facility], Location: Lab - Discharge Instructions Follow Up With: Marcelle Hyman MD [Partnered Physician] - NONE,PCP [Primary Care Provider] - Gallito Cannon MD [Partnered Physician] - - Diet and Activity Activity: increase activity as tolerated Diet: low salt diet
[2018-08-07 10:22] LABS: Platelet Estimate Normal (Normal)
== END 2018-08-07 11:42 | disposition home or self-care (01) ==
LOC: 3BNU → SUATTDRO 02:51
PROVIDERS: ADMIT Internal Medicine; ATTEND Family Medicine

== ENCOUNTER 2020-02-15 18:31 | Observation (INO) ==
[2020-02-15] MEDS ORDERED: Naloxone 0.4 MG/ML INJ IVP PRN ×2 (20:46→22:44)
[2020-02-15] MEDS: 0.9 % Sodium Chloride 1,000 ML IVC SCH (22:03)
[2020-02-15] MEDS ORDERED: Acetaminophen 325 MG TABLET PO PRN (22:44)
[2020-02-15] MEDS ORDERED: Ondansetron 4 MG/2 ML VIAL IVP PRN (22:44)
[2020-02-15] MEDS: *HR* Heparin 5,000 UNIT/ML VIAL SQ SCH (23:01)
[2020-02-16] MEDS ORDERED: Aspirin 325 MG TABLET PO ONE (00:31)
[2020-02-16 00:45] LABS: Bilirubin,Urine Negative (Negative); Blood,Urine Negative (Negative); Clarity,Urine Clear (Clear); Color,Urine Yellow (Yellow); Glucose,Urine (UA) Normal (Normal); Ketones,Urine Negative (Negative); Leukocyte Esterase,Urine Moderate (Negative); Nitrite,Urine Positive (Negative); PH,Urine 5.5 pH Units (5.0-8.0); Protein,Urine Trace mg/dL (Neg-Trace); Specific Gravity,Urine > 1.030 (1.010-1.025); Urobilinogen,Urine Normal (Normal)
[2020-02-16 00:47] LABS: Bacteria,Urine None Seen per hpf (None-Few); Hyaline Casts,Urine None Seen per lpf (None-Few); RBC,Urine 0-3 per hpf (0-3); Squamous Epithelial Cell,Urine Moderate per lpf (None-Few); WBC,Urine TNTC per hpf (0-3)
[2020-02-16 01:24] LABS: Basophils % 0.5 %; Eosinophils # 0.2 K/mcL (0.0-0.6); Hematocrit 36.2 % (35.3-44.9); Hemoglobin 11.7 g/dL (11.5-15.4); Immature Granulocytes % 0.2 % (0-4); Lymphocytes # 1.8 K/mcL (0.6-4.6); Lymphocytes % 22.8 %; Mean Corpuscular HGB Conc 32.3 g/dL (31.6-35.5); Mean Corpuscular Hemoglobin 31.1 pg (28.0-33.3); Mean Corpuscular Volume 96.3 fL (83.0-100.0); Monocytes # 0.7 K/mcL (0.0-1.3); Monocytes % 8.6 %; Neutrophils # 5.2 K/mcL (1.6-8.9); Platelet Count 263 K/mcL (140-400); Red Blood Count 3.76 M/mcL (3.82-4.97); Segmented Neutrophils % 64.9 %; White Blood Count 8.1 K/mcL (4.3-11.1)
[2020-02-16 01:46] LABS: Troponin I < 0.03 ng/mL (< 0.04)
[2020-02-16 01:48] LABS: Alanine Aminotransferase 11 Units/L (7-52); Albumin 3.7 g/dL (3.5-5.7); Albumin/Globulin Ratio 1.3 (1.1-2.2); Alkaline Phosphatase 75 Units/L (34-104); Aspartate Amino Transferase 17 Units/L (13-39); BUN/Creatinine Ratio 20 (6-26); Bilirubin,Direct 0.1 mg/dL (0.0-0.2); Bilirubin,Indirect 0.3 mg/dL (0.0-1.0); Bilirubin,Total 0.4 mg/dL (0.3-1.0); Blood Urea Nitrogen 18 mg/dL (6-20); Carbon Dioxide 22 mEq/L (23-29); Chloride 111 mEq/L (98-107); Creatine Kinase 173 Units/L (30-223); Globulin 2.8 g/dL (2.4-3.5); Glucose 110 mg/dL (70-105); Magnesium 1.9 mg/dL (1.6-2.6); Osmolality,Calculated 293 (280-300); Phosphorous 3.2 mg/dL (2.7-4.5); Potassium 3.8 mEq/L (3.5-5.1); Sodium 140 mEq/L (136-145); Total Protein 6.5 g/dL (6.4-8.9); eGFR For African Americans > 60 (> 60); eGFR For Non-African Americans > 60 (> 60)
[2020-02-16 01:58] LABS: Thyroid Stimulating Hormone 3.227 mcIU/mL (0.340-5.600)
[2020-02-16 02:04] LABS: Prolactin 12.92 ng/mL (3.80-23.20)
[2020-02-16] MEDS: 0.9 % Sodium Chloride 1,000 ML IVC SCH ×2 (05:24→17:12)
[2020-02-16] MEDS: *HR* Heparin 5,000 UNIT/ML VIAL SQ SCH ×3 (05:24→20:52)
[2020-02-16] MEDS: cefTRIAXone 1,000 MG in Water for inj. (sterile) 10 ML IVP SCH (09:58)
[2020-02-16] MEDS ORDERED: *HR* LORazepam 2 MG/ML VIAL IVP ONE (12:01)
[2020-02-16 14:09] LABS: Chol/HDL Ratio 4.6 (0-4.9); Estimated Average Glucose 123 mg/dl
[2020-02-17] MEDS: 0.9 % Sodium Chloride 1,000 ML IVC SCH (01:39)
[2020-02-17 02:06] LABS: Hematocrit 34.2 % (35.3-44.9); Hemoglobin 11.3 g/dL (11.5-15.4); Mean Corpuscular Hemoglobin 31.8 pg (28.0-33.3); Mean Corpuscular Volume 96.3 fL (83.0-100.0); Platelet Count 251 K/mcL (140-400); Red Blood Count 3.55 M/mcL (3.82-4.97); Red Cell Distribution Width 15.2 % (11.5-14.5); White Blood Count 6.5 K/mcL (4.3-11.1)
[2020-02-17 02:25] LABS: BUN/Creatinine Ratio 19 (6-26); Blood Urea Nitrogen 16 mg/dL (6-20); Calcium 8.4 mg/dL (8.6-10.3); Carbon Dioxide 22 mEq/L (23-29); Chloride 113 mEq/L (98-107); Glucose 94 mg/dL (70-105); Osmolality,Calculated 291 (280-300); Potassium 4.1 mEq/L (3.5-5.1); Sodium 140 mEq/L (136-145); eGFR For African Americans > 60 (> 60); eGFR For Non-African Americans > 60 (> 60)
[2020-02-17] MEDS: *HR* Heparin 5,000 UNIT/ML VIAL SQ SCH (05:42)
[2020-02-17] MEDS ORDERED: Aspirin 81 MG TAB.CHEW PO SCH (09:00)
[2020-02-17 10:39] VITALS: BP 158/89
[2020-02-17] MEDS: cefTRIAXone 1,000 MG in Water for inj. (sterile) 10 ML IVP SCH (10:56)
== END 2020-02-17 14:00 | disposition home or self-care (01) ==
LOC: 3BNU
PROVIDERS: ADMIT Student in an Organized Health Care Education/Training Program; ATTEND Student in an Organized Health Care Education/Training Program